=== PATIENT | male | born 1940 | race Caucasian/White ===

== ENCOUNTER 2022-12-07 08:53 | Emergency (ER) | payer MEDICARE ==
--- NOTE | 2022-12-07 08:55 | ERPHSYRPT ---
- History of Present Illness Time Seen by Provider: 12/07/22 08:55 Historian: patient, family Exam Limitations: no limitations Physician History: This is an 82-year-old active white male who has a history of hypertension and prostate issues in the past and is from [place]. He is here helping out family members who need assistance. Last evening, he noticed abdominal pain that is fairly localized in the midline, infraumbilical/suprapubic, detention between the umbilicus and the pubic bone anteriorly. It is sharp and nonradiating. He did notice some loose stools last evening. The pain has eased somewhat this morning but is still present. Patient does have a history of ureterolithiasis in the past and this pain is different than that. Patient denies chest pain. Patient denies shortness of breath. Patient has not had a fever. He has not noticed any dysuria or hematuria. Timing/Duration: yesterday Activities at Onset: none Quality: sharpness Abdominal Pain Onset Location: suprapubic Pain Radiation: no radiation Severity of Pain-Max: mild (To moderate) Severity of Pain-Current: mild Modifying Factors: Improves With: nothing Associated Symptoms: denies symptoms Previous symptoms: no prior history Allergies/Adverse Reactions: latex Allergy (Verified 12/07/22 09:15) Sulfa (Sulfonamide Antibiotics) Allergy (Verified 12/07/22 09:15) Home Medications: Finasteride 5 mg [Proscar 5 MG] 5 mg PO DAILY 12/07/22 [History] Losartan Potassium [Cozaar] 25 mg PO DAILY 12/07/22 [History] Terazosin HCl 50 mg PO DAILY 12/07/22 [History] dilTIAZem HCL [Diltiazem ER] 180 mg PO DAILY 12/07/22 [History] Travel Risk - International Travel Have you traveled outside of the country in past 3 weeks: No - Coronavirus Screening Are you exhibiting any of the following symptoms?: No Close contact with a COVID-19 positive Pt in past 14-21 Days: No - Review of Systems Constitutional: No Symptoms Eyes: No Symptoms Ears, Nose, & Throat: No Symptoms Respiratory: No Symptoms Cardiac: No Symptoms Abdominal/Gastrointestinal: Abdominal Pain (Suprapubic midline), No Nausea, No Vomiting, No Diarrhea, No Constipation Genitourinary Symptoms: No Symptoms Musculoskeletal: No Symptoms Skin: No Symptoms Neurological: No Symptoms Psychological: No Symptoms Endocrine: No Symptoms Hematologic/Lymphatic: No Symptoms Immunological/Allergic: No Symptoms All Other Systems: Reviewed and Negative - Past Medical History Pertinent Past Medical History: Yes - Past Surgical History Past Surgical History: Yes - Nursing Vital Signs Nursing Vital Signs: Initial Vital Signs Temperature 97.2 F 12/07/22 09:16 Pulse Rate 66 12/07/22 09:16 Respiratory Rate 18 12/07/22 09:16 Blood Pressure 168/70 12/07/22 09:16 O2 Sat by Pulse Oximetry 97 12/07/22 09:16 Pain Scale Pain Intensity 2 - Physical Exam General Appearance: no apparent distress, alert, anxiety, other (Patient laughing and joking) Eye Exam: PERRL/EOMI, eyes nml inspection Ears, Nose, Throat Exam: normal ENT inspection, moist mucous membranes Neck Exam: normal inspection, non-tender, supple, full range of motion Respiratory Exam: normal breath sounds, lungs clear, airway intact, No chest tenderness, No respiratory distress Cardiovascular Exam: regular rate/rhythm, normal heart sounds, normal peripheral pulses Gastrointestinal/Abdomen Exam: soft, normal bowel sounds, tenderness (Infra umbilical/suprapubic region to palpation), guarding (Suprapubic region to palpation), No rebound Rectal Exam: not done Back Exam: normal inspection, normal range of motion, No CVA tenderness, No vertebral tenderness Extremity Exam: normal inspection, normal range of motion, pelvis stable Neurologic Exam: alert, oriented x 3, cooperative, 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 II-XII nml as tested, normal mood/affect, nml cerebellar function, nml station & gait, sensation nml Skin Exam: normal color, warm, dry Lymphatic Exam: No adenopathy SpO2 Interpretation: normal O2 Delivery: Room Air - Course Nursing assessment & vital signs reviewed: Yes Ordered Tests: Active Orders 24 hr Category Date Time Status IV Insertion STAT Care 12/07/22 09:10 Active ABDOMEN AND PELVIS W/0 CONTRAS [CT] Stat Exams 12/07/22 09:11 Completed AMYLASE Stat Lab 12/07/22 09:37 Completed CBC W DIFF Stat Lab 12/07/22 09:37 Completed CMP Stat Lab 12/07/22 09:37 Completed LIPASE Stat Lab 12/07/22 09:37 Completed UA W/RFX UR CULTURE Stat Lab 12/07/22 09:35 Completed Lab/Rad Data: Laboratory Result Diagrams 12/07/22 09:37 12/07/22 09:37 Laboratory Results 12/07/22 12/07/22 12/07/22 Range/Units 09:37 09:37 09:35 WBC 12.7 H (4.0-10.5) x10^3/uL RBC 5.03 (4.1-5.6) x10^6/uL Hgb 13.6 (12.5-18.0) g/dL Hct 42.4 (42-50) % MCV 84.3 (78-100) fL MCH 27.0 (26-32) pg MCHC 32.1 (32-36) g/dL RDW 14.3 H (11.5-14.0) % Plt Count 159 (150-450) x10^3/uL MPV 10.3 (7.5-11.0) fL Gran % 53.3 (36.0-66.0) % Immature Gran % (Auto) 0.3 (0.00-0.4) % Nucleat RBC Rel Count 0.0 (0.00-0.1) % Eos # (Auto) 0.23 (0-0.5) x10^3/uL Immature Gran # (Auto) 0.04 H (0.00-0.03) x10^3u/L Absolute Lymphs (auto) 4.80 H (1.0-4.6) x10^3/uL Absolute Monos (auto) 0.79 (0.0-1.3) x10^3/uL Absolute Nucleated RBC 0.00 (0.00-0.01) x10^3u/L Lymphocytes % 37.9 (24.0-44.0) % Monocytes % 6.2 (0.0-12.0) % Eosinophils % 1.8 (0.00-5.0) % Basophils % 0.5 (0.0-0.4) % Absolute Granulocytes 6.76 (1.4-6.9) x10^3/uL Basophils # 0.06 (0-0.4) x10^3/uL Sodium 138 (137-145) mmol/L Potassium 4.3 (3.5-5.1) mmol/L Chloride 106 (98-107) mmol/L Carbon Dioxide 22 (22-30) mmol/L Anion Gap 15.2 H (5-15) MEQ/L BUN 19 (9-20) mg/dL Creatinine 0.97 (0.66-1.25) mg/dL Estimated GFR > 60.0 ML/MIN Glucose 116 H (74-106) mg/dL Calcium 8.6 (8.4-10.2) mg/dL Total Bilirubin 0.60 (0.2-1.3) mg/dL AST 26 (17-59) U/L ALT 16 (0-50) U/L Alkaline Phosphatase 101 (38-126) U/L Serum Total Protein 7.2 (6.3-8.2) g/dL Albumin 4.1 (3.5-5.0) g/dL Amylase 78 (30-110) U/L Lipase 54 (23-300) U/L Urine Color Yellow (Yellow) Urine Appearance Clear (Clear) Urine pH 5.5 (4.6-8.0) Ur Specific [place] 1.020 (1.005-1.030) Urine Protein Negative (Negative) Urine Glucose (UA) Negative (Negative) mg/dL Urine Ketones Negative (Negative) Urine Blood NHT (Negative) Urine Nitrite Negative (Negative) Urine Bilirubin Negative (Negative) Urine Urobilinogen 0.2 (0.2) mg/dL Ur Leukocyte Esterase Negative (Negative) U Hyaline Cast (Auto) NONE SEEN (0-2) /LPF Urine Microscopic RBC 3-5 (0-5) /HPF Urine Microscopic WBC 0-2 (0-5) /HPF Ur Epithelial Cells None Seen (None Seen) /HPF Urine Bacteria None Seen (None Seen) /HPF Urine Culture Reflexed NO (NO) - Progress Progress: improved, pain not gone completely Progress Note: 12/07/22 10:47 CAT scan of the abdomen pelvis without contrast shows descending and sigmoid colon diverticulosis with mild sigmoid colon diverticulitis. There is mid to distal moderate circumferential wall thickening with associated stranding favoring diverticulitis. An underlying mass is not entirely excluded. There are also bilateral inguinal hernias present This patient's medical issue is of moderate complexity. This is based on the patient complaint, history of present illness, review of the patient's medical history and drug allergies, physical findings on examination. Based on the above we ordered urinalysis, obtain blood work, placed an intravenous line and performed a CAT scan of the abdomen pelvis. I reviewed the results of all of these studies. I discussed the results of the studies with the patient. The patient has at least mild sigmoid diverticulitis. Patient was told that an underlying mass cannot be excluded. However, the most likely diagnosis is diverticulitis of the sigmoid colon that is mild. I informed him of our plan to provide him with Cipro and Flagyl oral antibiotics and drop his diet back to a clear liquid diet until he has no pain and then he can advance his diet as tolerated. The discharge plan of him continuing the Cipro and Flagyl oral antibiotics in the diet as discussed. I also informed him the need to follow-up with the software architect in the next week or 2 to determine if and when a colonoscopy would be appropriate to be performed. Counseled pt/family regarding: lab results, diagnosis, need for follow-up, rad results Medical Desision Making - Independent Historian Additional History obtained from: Spouse - Discussion of managment Reviewed:: Test results, Need for additional workup Agreed on:: Treatment plan, need for follow-up - Diagnostic Testing Radiological Interpretation: Reviewed by me, Teleradiologist Report - Risk of complications Low Risk: Low risk of morbidity from additional dx testing or treatment - Departure Departure Disposition: Home Clinical Impression: Sigmoid diverticulitis Condition: Stable Critical Care Time: No Additional Instructions: Drink plenty of clear liquids. Do not advance your diet until you have no pain. Take your antibiotics as prescribed. Follow-up with a software architect in the next 1 to 2 weeks to determine if and when a colonoscopy is appropriate to be performed. Prescriptions: Ciprofloxacin [Cipro 500 MG] 500 mg PO BID #14 tablet Metronidazole 500 mg [Flagyl 500 MG] 500 mg PO TID #21 tablet
[2022-12-07 09:36] LABS: Absolute Neutrophil Ct (ANC) 6.76 x10^3/uL (1.4-6.9); BASOPHIL % 0.5 % (0.0-0.4); Basophil (Absolute #) 0.06 x10^3/uL (0-0.4); Eosinophil % 1.8 % (0.00-5.0); Eosinophil (Absolute #) 0.23 x10^3/uL (0-0.5); Hematocrit 42.4 % (42-50); Hemoglobin 13.6 g/dL (12.5-18.0); IMMATURE GRAN # 0.04 x10^3u/L (0.00-0.03); IMMATURE GRAN % 0.3 % (0.00-0.4); Lymphocytes % 37.9 % (24.0-44.0); Mean Cell Volume 84.3 fL (78-100); Mean Corpuscular Hgb Concent. 32.1 g/dL (32-36); Mean Platelet Volume 10.3 fL (7.5-11.0); Monocyte (Absolute #) 0.79 x10^3/uL (0.0-1.3); Monocytes % 6.2 % (0.0-12.0); Neutrophil % 53.3 % (36.0-66.0); Platelet Count 159 x10^3/uL (150-450); Red Blood Count 5.03 x10^6/uL (4.1-5.6); Red Cell Distribution Width 14.3 % (11.5-14.0); White Blood Count 12.7 x10^3/uL (4.0-10.5)
[2022-12-07 09:43] LABS: Appearance Clear (Clear); Bacteria None Seen /HPF (None Seen); Bilirubin Negative (Negative); Blood NHT (Negative); Epithelial Cells None Seen /HPF (None Seen); Glucose, Urine Negative (Negative); Hyaline Casts NONE SEEN /LPF (0-2); Ketones Negative (Negative); Leukocyte Esterase Negative (Negative); Nitrite Negative (Negative); Ph 5.5 (4.6-8.0); Protein,Urine Dip Negative (Negative); Urobilinogen 0.2 mg/dL (0.2); WBC 0-2 /HPF (0-5)
[2022-12-07 09:45] LABS: ADD URINE CULTURE? NO (NO)
[2022-12-07 09:52] LABS: ALBUMIN 4.1 g/dL (3.5-5.0); ALKALINE PHOSPHATASE 101 U/L (38-126); AMYLASE 78 U/L (30-110); ANION GAP 15.2 MEQ/L (5-15); BLOOD UREA NITROGEN 19 mg/dL (9-20); CHLORIDE 106 mmol/L (98-107); Calcium 8.6 mg/dL (8.4-10.2); Carbon Dioxide 22 mmol/L (22-30); Creatinine 1 0.97 mg/dL (0.66-1.25); EST GLOMERULAR FILTRATION RATE > 60.0 ML/MIN; Glucose 116 mg/dL (74-106); LIPASE 54 U/L (23-300); Potassium 4.3 mmol/L (3.5-5.1); SGOT/AST 26 U/L (17-59); SGPT/ALT 16 U/L (0-50); SODIUM 138 mmol/L (137-145); Total Protein 7.2 g/dL (6.3-8.2)
--- NOTE | 2022-12-07 10:40 | XRAY ---
Indication: Abdomen pain. Multiple contiguous axial images obtained through the abdomen and pelvis without contrast. Comparison: None Lung bases demonstrate mild left base subsegmental atelectasis/scarring and tiny left costophrenic angle calcified granuloma. Heart is not enlarged. Small hiatal hernia. Right hip arthroplasty produces beam artifact. Noncontrasted stomach and bowel loops nonobstructed. Normal appendix. Scattered descending and sigmoid diverticulosis. Mid to distal sigmoid demonstrates moderate circumferential wall thickening with mild stranding favoring diverticulitis. Underlying sigmoid mass not completely excluded. Incidental tiny hepatic/splenic calcified granulomas. Two right renal and one left renal nonobstructing punctate calculi. No free fluid/air. Remaining liver, gallbladder, pancreas, spleen, adrenal glands, kidneys, ureters, and bladder are unremarkable for noncontrast exam. Moderate scattered aortoiliac calcifications without AAA. Osseous structures intact with osteopenia, moderate/advanced degenerative changes throughout the thoracolumbar spine, mild levoscoliosis centered at L3, and moderate/advanced degenerative changes left hip. Small fatty bilateral inguinal hernias. Impression: 1. Descending and sigmoid diverticulosis with mild sigmoid diverticulitis. No competitions. Underlying mass not completely excluded. 2. Chronic findings including fatty bilateral inguinal hernias, small hiatal hernia, nonobstructing bilateral renal punctate calculi, arteriosclerotic disease, chronic bony findings, and old granulomatous disease.
[2022-12-07] MEDS ORDERED: Flagyl 500 MG PO ONE (10:53)
[2022-12-07] MEDS ORDERED: Levofloxacin 500 MG Tablet PO ONE (10:53)
[2022-12-07] MEDS ORDERED: Flagyl 500 MG ONE (10:57)
[2022-12-07] MEDS ORDERED: Levofloxacin 500 MG Tablet ONE (10:57)
[2022-12-07 11:11] VITALS: BP 125/65; PULSE 64; O2SAT 95
== END 2022-12-07 11:20 | disposition home or self-care (01) ==
LOC: ED 08:53
DX: K57.32 Diverticulitis of large intestine without perforation or abscess without bleeding (principal); R10.2 Pelvic and perineal pain; I10 Essential (primary) hypertension; Z79.899 Other long term (current) drug therapy
CPT/HCPCS: 36415; 74176; 80053; 81001; 82150; 83690; 85025; 99283; A9270-GY